=== PATIENT | female | born 1995 | race Caucasian/White ===

== ENCOUNTER 2024-08-08 08:30 | Inpatient (IN) | payer OTHER, SELFPAY ==
[2024-08-08] VITALS (50 sets, daily range): BP systolic 96–121; BP diastolic 53–79; PULSE 70–93; RESP 16; TEMP 35.7–36.9; O2SAT 97–100; BMI 26.1
[2024-08-08] MEDS: Lactated Ringers 1,000 ML 999 ML IV (09:25)
[2024-08-08] MEDS: Lactated Ringers 1,000 ML 50 ML IV (09:30)
[2024-08-08 09:48] LABS: Hematocrit 42.8 % (37-47); Hemoglobin 14.6 g/dL (12.0-15.0); Immature Granulocytes Count 0.120 X10^3/uL (0.0-0.0); Mean Corp Hgb Conc 34.1 g/dL (32-36); Mean Corpuscular Volume 93.2 fL (81-99); Mean Platelet Vol. 11.9 fl (6.2-12.0); NRBC Flagged by Analyzer 0 % (0-5); Platelet Count 214 K/mm3 (150-450); RBC Distribution Width CV 13.1 % (11.6-14.6); RBC Distribution Width SD 44.2 fl (35.1-43.9); Red Blood Count 4.59 M/mm3 (4.2-5.4); White Blood Count 16.8 K/mm3 (4.4-11.0)
[2024-08-08 10:27] LABS: Syphilis Antibodies Nonreactive (Nonreactive)
[2024-08-08] MEDS: fentaNYL-bupivacaine (epidural) 100 ML BAG EPIDURAL (10:28)
[2024-08-08] MEDS: Lactated Ringers 1,000 ML 200 ML IV (12:23)
[2024-08-08] MEDS: Oxytocin 15 Units/NS 250ml 15 UNITS/250 ML IV.SOLN 334 UNITS IV (14:34)
[2024-08-08] MEDS: Oxytocin 15 Units/NS 250ml 15 UNITS/250 ML IV.SOLN 83 UNITS IV (15:05)
[2024-08-09 00:05] VITALS: BP 108/73; PULSE 88; RESP 16; TEMP 36.4; O2SAT 97
[2024-08-09 08:40] VITALS: BP 111/65; PULSE 95; RESP 14; TEMP 36.6; O2SAT 96
[2024-08-09 13:15] VITALS: BP 101/61; PULSE 85; RESP 16; O2SAT 98
[2024-08-09 19:51] VITALS: BP 110/74; PULSE 98; RESP 16; TEMP 36.7; O2SAT 98
[2024-08-10 02:00] VITALS: BP 103/70; PULSE 78; RESP 18; TEMP 36.4; O2SAT 96
[2024-08-10 08:00] VITALS: BP 96/67; PULSE 83; RESP 16; TEMP 36.5; O2SAT 98
[2024-08-10] MEDS: Benzocaine/Lanolin/Aloe Vera 85 GM Spray 1 SPRAY TOPICAL (11:09)
[2024-08-10] MEDS: Senna/Docusate Sodium 1 Tablet PO (11:09)
== END 2024-08-10 15:00 | disposition home or self-care (01) | DRG 807 ==
LOC: WPOUT 08:40 → WP 08:40
PROVIDERS: Admitting Provider Obstetrics & Gynecology; Visit Provider Obstetrics & Gynecology
DX: O42.02 Full-term premature rupture of membranes, onset of labor within 24 hours of rupture (principal); Z37.0 Single live birth; O70.1 Second degree perineal laceration during delivery; Z79.82 Long term (current) use of aspirin; Z79.890 Hormone replacement therapy; Z3A.39 39 weeks gestation of pregnancy
CPT/HCPCS: 59025; 59050; 82962; 85025; 86780; 86850; 86900; 86901; 99221; G0378; J2405